=== PATIENT | male | born 1980 | race Caucasian/White ===

== ENCOUNTER 2024-11-04 07:01 | Emergency (ER) | payer BC, SELFPAY ==
[2024-11-04 07:08] VITALS: BP 145/112; PULSE 108; TEMP 36.7; O2SAT 97; BMI 28.0
--- NOTE | 2024-11-04 07:35 | ED_ITS ---
HPI HPI - General Adult General Chief complaint: Chest Pain Stated complaint: rib pain Time Seen by Provider: 11/04/24 07:12 Source: patient Mode of arrival: walk-in Limitations: no limitations History of Present Illness HPI narrative: 44-year-old male presents for sudden onset 1 hour ago of pain in his left lower lateral rib area. He states he was at work and was laughing and he felt a popping sensation and felt like a rib cracked. He did not fall and there was no injury. He was treated for pneumonia a few weeks ago, right sided. It is a severe, sharp pain and it is worse when he moves. Related Data Home Medications ?Medication ?Instructions ?Recorded ?Confirmed amlodipine 10 mg tablet 10 mg PO DAILY 11/04/24 11/04/24 benzonatate 200 mg capsule 200 mg PO BID 11/04/24 11/04/24 doxazosin 2 mg tablet 2 mg PO DAILY 11/04/24 11/04/24 omeprazole 40 mg capsule,delayed 40 mg PO DAILY 11/04/24 11/04/24 release rosuvastatin 10 mg tablet 10 mg PO DAILY 11/04/24 11/04/24 Previous Rx's ?Medication ?Instructions ?Recorded hydrocodone 5 mg-acetaminophen 325 1 tab PO Q6H PRN pain 5 days #20 11/04/24 mg tablet tabs Allergies Allergy/AdvReac Type Severity Reaction Status Date / Time No Known Drug Allergies Allergy Verified 11/04/24 07:08 Opioid HPI Opioid Management Most Recent Opioid Data: Last Pain Scale 10 11/04/24 08:00 11/04/24 Last ED Pain Assessment 11/04/24 07:17 Last MAR Pain Assessment 11/04/24 07:40 Review of Systems ROS Narrative A ten point review of systems is negative except as noted above. PFSH PFSH Social History Little interest or pleasure in doing things: not at all Feeling down, depressed, or hopeless: not at all Exam Narrative Exam Narrative: Nurses note and vital signs reviewed and patient is not hypoxic. General: The patient appears uncomfortable and in no acute respiratory distress. Skin: Warm, dry, no pallor noted. There is no rash noted. Head: Normocephalic, atraumatic Eye: Normal conjunctiva, no drainage Ears, Nose, Mouth, and Throat: oral mucosa is moist. Nares patent. Cardiovascular: Regular Rate and Rhythm, mildly tachycardic Respiratory: Patient is in no distress, no accessory muscle use, lungs are clear to auscultation, no wheezing, rales or rhonchi. He has no crepitus on palpation of the left lateral chest wall. There is no erythema bruise or rash. He seems to have some tenderness in this region. Back: non-tender GI: Normal bowel sounds, no tenderness to palpation, no masses appreciated. No rebound, guarding, or rigidity noted. Musculoskeletal: The patient has no evidence of calf tenderness, no pitting edema, symmetrical pulses noted bilaterally Neurological: A&O, normal speech Psychiatric: Cooperative Constitutional Vital Signs, click to edit/add: Last Vital Signs Temp 98.1 F 11/04/24 07:08 Pulse 108 H 11/04/24 07:08 Resp 20 11/04/24 07:08 BP 145/112 H 11/04/24 07:08 Pulse Ox 97 11/04/24 07:08 O2 Del Method Room Air 11/04/24 07:08 Course Vital Signs Vital signs: Vital Signs Temperature 98.1 F 11/04/24 07:08 Pulse Rate 108 H 11/04/24 07:08 Respiratory Rate 20 11/04/24 07:08 Blood Pressure 145/112 H 11/04/24 07:08 Pulse Oximetry 97 11/04/24 07:08 Oxygen Delivery Method Room Air 11/04/24 07:08 Temperature 98.1 F 11/04/24 07:08 Pulse Rate 108 H 11/04/24 07:08 Respiratory Rate 20 11/04/24 07:08 Blood Pressure 145/112 H 11/04/24 07:08 Pulse Oximetry 97 11/04/24 07:08 Oxygen Delivery Method Room Air 11/04/24 07:08 Medical Decision Making [facility] Narrative Medical decision making narrative: My initial concern was for a pneumothorax. A portable chest x-ray did not show any pneumothorax. He was ordered rib x-rays and these also did not show pneumothorax or rib fracture. He is feeling improved after IM Toradol. I have no clinical suspicion of a pulmonary embolism. His pain is clearly reproducible and positional. I also do not suspect a kidney stone, his pain is not in the correct distribution and his symptoms are not consistent with a kidney stone. He was given a work note for today and tomorrow and a prescription for [place]. Treatment diagnosis and follow-up were discussed with the patient. He still has remnants of pneumonia on his chest x-ray but this is already been treated and he has no symptoms of pneumonia. He had been treated for this pneumonia very recently. Differential Diagnosis Differential Diagnosis: Pneumothorax, rib fracture, chest wall muscle strain Imaging Data Chest x-ray, rib films: Radiologist's impression: Right upper lobe pneumonia, no rib fracture Discharge Plan Discharge Chief Complaint: Chest Pain Clinical Impression: Acute chest wall pain Patient Disposition: Home, Self-Care Time of Disposition Decision: 08:42 Condition: Good Mode of Transportation: Private Vehicle Prescriptions / Home Meds: New hydrocodone-acetaminophen 5-325 mg tablet 1 tab PO Q6H PRN (Reason: pain) 5 Days Qty: 20 0RF No Action amlodipine 10 mg tablet 10 mg PO DAILY benzonatate 200 mg capsule 200 mg PO BID doxazosin 2 mg tablet 2 mg PO DAILY omeprazole 40 mg capsule,delayed release(DR/EC) 40 mg PO DAILY rosuvastatin 10 mg tablet 10 mg PO DAILY Print Language: [place] Referrals: Physician,Non-Staff, [Physician] - 1 week
[2024-11-04] MEDS: KETOROLAC TROMETHAMINE 60 MG/2 ML VIAL IM (07:40)
[2024-11-04 08:45] VITALS: BP 122/94; PULSE 94; O2SAT 95
== END 2024-11-04 08:54 | disposition home or self-care (01) ==
PROVIDERS: Emergency Provider Emergency Medicine; PCP Internal Medicine
DX: R07.89 Other chest pain (principal)
CPT/HCPCS: 71045; 71100; 96372; 99284; J1885